=== PATIENT | male | born 1955 | race Caucasian/White ===

== ENCOUNTER 2021-05-06 04:39 | Emergency (ER) | payer BC, SELFPAY ==
[2021-05-06] VITALS (7 sets, daily range): BP systolic 59–150; BP diastolic 49–86; PULSE 75–93; RESP 18–20; TEMP 36.4; O2SAT 95–99; BMI 20.5
--- NOTE | 2021-05-06 05:07 | RAD_ITS ---
STUDY: X-RAY CHEST REASON FOR EXAM: Male, 66 years old. Recent COVID, syncopal episode TECHNIQUE: AP COMPARISON: None. FINDINGS: EKG leads project over the chest. Reticular and groundglass opacities in the left more than right lung base. There is no demonstrated pleural abnormality. Normal size heart. Normal mediastinum and chela. Normal visualized pulmonary arteries. There is atherosclerotic calcification of the aortic arch with tortuosity. Normal visualized thoracic spine. Normal visualized ribs, clavicles, and shoulders. There is no demonstrated abnormality of the visualized soft tissue structures of the upper abdomen. RAD/Chest 1 View (Portable) IMPRESSION: 1. Left more than right basilar infiltrates could represent atelectasis or fibrotic bands although acute infiltrate/pneumonia is also possible. Electronically Signed: Eugene Hager MD ([place]) at 8:26 EST , Service support ,
--- NOTE | 2021-05-06 05:07 | EKG12_ITS ---
Test Reason : SYNCOPE Blood Pressure : / mmHG Vent. Rate : 079 BPM Atrial Rate : 079 BPM P-R Int : 182 ms QRS Dur : 130 ms QT Int : 406 ms P-R-T Axes : 067 -62 -13 degrees QTc Int : 465 ms Normal sinus rhythm Left axis deviation Left ventricular hypertrophy with QRS widening Nonspecific T wave abnormality Abnormal ECG Confirmed by BREN LR, KEYANA ([id number]), editor producer JONAH YANEZ ([id number]) on 05/08/2021 8:16:12 AM Referred By: DARRION Confirmed By:KEYANA CORREIA MD
--- NOTE | 2021-05-06 05:07 | CT_ITS ---
STUDY: CT BRAIN WITHOUT CONTRAST REASON FOR EXAM: Male, 66 years old. Syncope RADIATION DOSAGE (If Supplied By Facility): CTDIvol = ( 44.99 ) mGy, DLP = ( 897.35 ) mGycm TECHNIQUE: Transaxial CT imaging of the brain was performed without administration of intravenous contrast material. Individualized dose optimization techniques were used for this CT. COMPARISON: No relevant priors. FINDINGS: Normal soft tissue structures. Normal calvarium. There is mild cerebral atrophy with widening of the extra-axial spaces and ventricular dilatation. There are areas of decreased attenuation within the white matter tracts of the supratentorial brain, consistent with microvascular disease changes. Normal basal ganglia and thalami. Normal brainstem. Normal cerebellum. There is no intracranial hemorrhage. There are no findings of an acute ischemic infarction. Atherosclerotic calcification of the cavernous portions of the internal carotid arteries. Normal visualized paranasal sinuses. CT/Brain/Head without Contrast IMPRESSION: Chronic involutional changes of the brain. Electronically Signed: Giovanni Calero MD at 10:06 EST , Service support ,
[2021-05-06 05:56] LABS: Anion Gap 8 (5-15); BUN 20 mg/dL (7-18); BUN/Creat Ratio 20.8 RATIO (10-20); Calcium,Total 8.6 mg/dL (8.5-10.1); Chloride 92 mmol/L (98-107); Creatinine, Serum 0.96 mg/dL (0.70-1.30); EST Glomerular Filtration Rate 84 mL/min (>60); Est Glom Filt Rate - Afr Amer 101 mL/min (>60); Estimated Creatinine Clearance 76.82 ml/min; Glucose 124 mg/dL (74-106); Magnesium 2.4 mg/dL (1.6-2.6); Potassium 3.4 mmol/L (3.5-5.1); Sodium Level 129 mmol/L (136-145); Troponin-I HS 13 pg/mL (3.0-78.0)
[2021-05-06 06:06] LABS: Absolute Lymphocyte Count 0.24 X10^3/uL (0.83-4.51); Absolute Neutrophil Count 4.2 X10^3/uL (2.0-7.7); Basophil# 0.01 X10^3/uL; Basophil% 0.2 % (0-1); Hematocrit 37.4 % (40-54); Hemoglobin 13.2 g/dL (13.0-16.5); Lymphocyte # 0.24 X10^3/ul (0.83-4.51); Mean Corp Hgb Conc 35.3 g/dL (32-36); Mean Corpuscular Hgb 29.6 pg (27.0-32.0); Mean Corpuscular Volume 83.9 fL (80-94); Mean Platelet Vol. 9.7 fl (6.2-12.0); Monocyte# 0.37 X10^3/uL; Monocyte% 7.7 % (0-10); NRBC Flagged by Analyzer 0 % (0-5); Neutrophil # 4.15 X10^3/uL (2.7-7.7); Neutrophil % 85.9 % (47-70); POSITIVE DIFFERENTIAL YES; Platelet Count 222 K/mm3 (150-450); RBC Distribution Width CV 12.8 % (11.6-14.6); RBC Distribution Width SD 39.2 fl (35.1-43.9); Red Blood Count 4.46 M/mm3 (4.6-6.2); White Blood Count 4.8 K/mm3 (4.4-11.0)
[2021-05-06 06:07] LABS: Differential Indicated SCAN CRITERIA MET
[2021-05-06] MEDS: 0.9% Normal Saline 1,000 ML 999 ML IV ×3 (06:19→08:47)
[2021-05-06] MEDS: dexAMETHasone 10 MG/ML Vial IV (06:19)
--- NOTE | 2021-05-06 07:02 | EDS_ITS ---
HPI History of Present Illness Chief Complaint: Syncope Narrative Narrative: Pt states that he tested positive for covid about 7 days ago. he states that he has been feeling run down and weak. he states that he got up to use the bathroom today and as he as walking to the bathroom had a syncopal event. PFSH PFSH Medical History no medical history Allergy/AdvReac Type Severity Reaction Status Date / Time No Known Allergies Allergy Verified 05/06/21 04:44 Social History Smoking Status: Never smoker ROS ROS ED Constitutional Constitutional ED: Denies chills or fever(s) ENT ENT ED: Reports rhinorrhea and sore throat Cardiovascular Cardiovascular: Denies chest pain Respiratory/Chest Respiratory/Chest: Reports cough; Denies dyspnea Gastrointestinal Gastrointestinal: Denies abdominal pain, diarrhea, nausea or vomiting Genitourinary Genitourinary ED: Denies dysuria Musculoskeletal Musculoskeletal: Reports myalgias; Denies back pain or neck pain Integumentary Denies rash Neurologic Neurologic: Reports weakness; Denies headache(s) EXAM Physical Exam Const Vital Signs: 05/06/21 04:40 05/06/21 04:44 05/06/21 06:13 Temperature 97.5 F L Temperature Source Oral Pulse Rate 75 Pulse Rate [Lying] 77 Pulse Rate [Sitting] 83 Respiratory Rate 18 Respiratory Pattern Normal Blood Pressure 107/72 Blood Pressure [Lying] 97/62 Blood Pressure [Sitting] 59/49 L Blood Pressure Mean 83 Blood Pressure Mean [Lying] 73 Blood Pressure Mean [Sitting] 52 Pulse Ox 95 Oxygen Delivery Method Room Air 05/06/21 07:12 05/06/21 07:43 05/06/21 08:32 Temperature Temperature Source Pulse Rate 78 77 Pulse Rate [Lying] 81 Pulse Rate [Sitting] 81 Respiratory Rate 18 18 Respiratory Pattern Blood Pressure 113/62 117/65 Blood Pressure [Lying] 147/83 H Blood Pressure [Sitting] 125/75 H Blood Pressure Mean 79 82 Blood Pressure Mean [Lying] 104 Blood Pressure Mean [Sitting] 91 Pulse Ox 99 99 Oxygen Delivery Method Room Air Room Air Positive well nourished, well developed and unkempt General Appearance ED: unkempt and well developed HEENT Reports dry mucous membranes HEENT Narrative: No tounge or cheek biting noted, no signs of trauma Mouth ED: Yes dry mucous membranes Mouth: dry mucous membranes Eyes PERRL and EOMs intact bilaterally General Eye ED: Yes pale conjunctiva Neck supple Neck Narrative: no midline pain with palpation Chest Wall palpation of chest normal Resp normal respiratory effort Resp Narrative: BS are diminished throughout with faint wheeze but no acute distress Cardio regular rate and regular rhythm GI normal to inspection, nondistended, normoactive bowel sounds, non-tender, non- distended and no masses GI Narrative: No pulsatile mass Auscultation: normoactive bowel sounds Palpation: soft Extremity normal to inspection Neuro oriented x3 and CN's II-XII intact bilaterally Sensorium / Orientation: alert Psych mental status grossly normal Appearance: unkempt Skin no rashes or lesions noted Skin Narrative: skin turgor is increased MDM MDM Lab Data Labs: Laboratory Results - last 24 hr 05/06/21 05/06/21 05:30 05:30 WBC 4.8 RBC 4.46 L Hgb 13.2 Hct 37.4 L MCV 83.9 MCH 29.6 MCHC 35.3 RDW Std Deviation 39.2 RDW Coeff of Radha 12.8 Plt Count 222 MPV 9.7 Immature Gran % (Auto) 1.200 H Neut % (Auto) 85.9 H Lymph % (Auto) 5.0 L [place] % (Auto) 7.7 Eos % (Auto) 0.0 Baso % (Auto) 0.2 Absolute Neuts (auto) 4.2 Absolute Lymphs (auto) 0.24 L Nucleated RBC % 0 Sodium 129 L Potassium 3.4 L Chloride 92 L Carbon Dioxide 29.0 Anion Gap 8 BUN 20 H Creatinine 0.96 Estim Creat Clear Calc 76.82 Est GFR (MDRD) Af Amer 101 Est GFR (MDRD) Non-Af 84 BUN/Creatinine Ratio 20.8 H Glucose 124 H Calcium 8.6 Magnesium 2.4 Troponin I High Sens 13 Radiography Diagnostic Testing: Clinical Impression(s) from Imaging Studies Chest X-Ray 05/06/21 05:07 IMPRESSION: 1. Left more than right basilar infiltrates could represent atelectasis or fibrotic bands although acute infiltrate/pneumonia is also possible. Electronically Signed: Eugene Hager MD ([place]) at 8:26 EST , Service support , Discharge Plan Triage Chief Complaint: Syncope ED Provider: Coleman Richmond Dx/Rx/DC Orders Primary Care Provider: Care Physician,No Primary
--- NOTE | 2021-05-06 09:38 | CM.ED ---
SW Note Referral Source: Case Find Referral Reason: NO PCP SW met with patient and he confirmed he had no PCP.SW provided patient with 2020 Healthcare Provider Directory. No other concerns or issues voiced. Plan: Healthcare Provider list provided to patient Gisela DUMONT
--- NOTE | 2021-05-06 11:01 | ED.RN ---
PT VERY ANGRY ABOUT BEING DISCHARGED. PT SCREAMS AT STAFF WHEN IV IS REMOVED. PT STATES I CAN'T BELIEVE YOU ARE KICKING ME OUT. THIS RN REMINDS PT HE IS NOT BEING KICKED OUT BUT RATHER DISCHARGED HOME.PT CALLING FOR A RIDE. PT PLACED IN HALLWAY TO AWAIT RIDE TO TO DEPARTMENTAL ACTIVITY. PT VERY ANGRY ABOUT THIS SITUATION. PT YELLING AT THIS RN. PT REFUSING TO KEEP MASK UP OVER NOSE AND MOUTH. REMINDED THAT WHILE IN HALLWAY IT MUST STAY UP
== END 2021-05-06 11:03 | disposition home or self-care (01) ==
PROVIDERS: Emergency Provider Emergency Medicine
DX: R55 Syncope and collapse (principal); Z86.16 Personal history of COVID-19
CPT/HCPCS: 70450; 71045; 80048; 83735; 84484; 85025; 87426; 93005; 96374; 99285